=== PATIENT | male | born 2005 | race Two or more races ===

== ENCOUNTER 2025-01-06 19:30 | Emergency (ER) | payer BC, SELFPAY ==
--- NOTE | ~2025-01-06 | CT_ITS ---
CLINICAL HISTORY: LLQ pain, divertic? CT abdomen and pelvis with contrast Comparison: CT - CT ABDOMEN PELVIS W IV CON - 01/06/25 21:25 EDT Findings: No consolidation or effusion. Hepatic steatosis. Normal splenic size. Gallbladder and biliary tree, pancreas, adrenal glands and kidneys demonstrate no acute findings. No radiopaque stones or hydronephrosis. No bowel obstruction, pneumoperitoneum, or pneumatosis. No significant diverticular disease appreciated. Pelvic contents unremarkable. Normal appendix. No fluid collections or adenopathy. No evidence of hernia. Nondilated vasculature. The bones are intact. IMPRESSION: Hepatic steatosis. No acute findings to explain the patient's left lower quadrant pain. Normal appendix. No evidence of hernia. No bowel obstruction or biliary obstruction. No obstructive uropathy. This document has been electronically signed by: Za Hall MD on 01/06/2025 21:52:09
--- NOTE | 2025-01-06 19:31 | ED.ABDPAIN ---
HPI - Abdominal Pain General Chief Complaint: Abdominal Pain Stated Complaint: Lwr abd pain Time Seen by Provider: 01/06/25 20:10 Source: patient Limitations: language barrier History of Present Illness ED Provider: Ciara Montes PA-C HPI narrative: 19-year-old otherwise healthy male presents with the abdominal pain x4 days. Pain over left lower abdomen, with radiation to the groin at times. Unable to describe the nature of his discomfort. Pain worse with movement of torso, or transitioning from lying down to sitting sitting to standing. Denies dysuria, hematuria, history of kidney stones. Denies nausea vomiting diarrhea or constipation. No fevers. Denies testicular pain or swelling, no penile discharge. Patient was seen at urgent care and was advised to come to the emergency room for further assessment. Related Data Previous Rx's ?Medication ?Instructions ?Recorded ketorolac 10 mg tablet 10 mg PO Q6H PRN pain #20 tabs 01/06/25 methocarbamol 750 mg tablet 1,500 mg (2 x 750 mg) PO BEDTIME 01/06/25 PRN pain, moderate #8 tabs Allergies Allergy/AdvReac Type Severity Reaction Status Date / Time No Known Allergies Allergy Verified 01/06/25 19:34 Review of Systems Review of Systems Yes all other systems are reviewed and are negative Constitutional: Denies fatigue and Denies fever(s) Cardiovascular: Denies chest pain and Denies dyspnea Respiratory: Denies cough and Denies dyspnea Gastrointestinal: Reports abdominal pain, Denies constipation, Denies diarrhea, Denies nausea and Denies vomiting Genitourinary: Denies hematuria, Denies dysuria, Denies flank pain, Denies penile discharge, Denies scrotal swelling and Denies testicular pain Musculoskeletal: Reports back pain Endocrine: Denies fatigue [facility] Past Medical History Attestation statement: The following information was validated with the patient. Social History Social History Advance Directives: No Advance Directives Information Provided: No Do you have a plan to hurt others: No Plan Physical Exam ED Vital Signs: Vital Signs - 24 hr 01/06/25 19:33 Temperature 97.3 F Pulse Rate 78 Respiratory Rate 16 Blood Pressure 143/96 H Pulse Oximetry 100 Oxygen Delivery Method Room Air BMI result Body Mass Index 25.8 Const Other: Alert well-appearing, does appear uncomfortable with movement Orientation/consciousness: patient oriented x3 Resp Effort & Inspection: normal respiratory effort Cardio Other: Normal peripheral perfusion GI Other: Abdomen is soft, nondistended, focal left lower abdominal discomfort that is moderate to severe with moderate involuntary guarding Skin Other: Warm dry no rash Neuro General: patient oriented x3, gait normal, no focal motor deficits and CN's II-XI intact bilaterally Psych Other: Cooperative Course Course Course Narrative: This is a Rapid Medical Exam performed in triage by Debra Mathias PA-C. Full HPI, ROS and PE to be performed by primary ED provider. 19 yo M presenting to the ED c/o LLQ abd pain x 4 days, pain is constant. +some dysuria. denies N/V/D, prior abd surgeries PE: abd soft w/+LLQ ttp no rebound or guarding Plan: Labs, UA Medical Decision Making Medical Decision Making [facility] Narrative: 19-year-old otherwise healthy male presents with the abdominal pain x4 days. Pain over left lower abdomen, with radiation to the groin at times. Unable to describe the nature of his discomfort. Pain worse with movement of torso, or transitioning from lying down to sitting sitting to standing. Denies dysuria, hematuria, history of kidney stones. Denies nausea vomiting diarrhea or constipation. No fevers. Denies testicular pain or swelling, no penile discharge. Denies abdominal distention or inability to pass flatus, no prior abdominal surgeries. Patient was seen at urgent care and was advised to come to the emergency room for further assessment to rule out incarcerated hernia. No chronic issues History: Per patient I have considered the following differential diagnoses: Bowel obstruction, diverticulitis, renal colic, torsion Plan: Patient here with focal left lower quadrant pain without any or GI symptoms. This is definitely not an incarcerated hernia. He has no obstructive symptoms, he has no palpable mass on exam. Given his pain is so intense on exam, I will be obtaining a CT scan of the abdomen, he does not need oral contrast. We will give morphine and fluid. Do not think this is torsion, he has no scrotal pain or swelling. Likely not renal colic, he never had flank pain, the pain has been focal to the left lower quadrant and he has no symptoms. Given focal left lower quadrant discomfort this could be diverticulitis, it would be odd given that he has no active GI symptoms. I have independently reviewed the following tests: Labs: No leukocytosis, not anemic, no electrolyte abnormality urine not infected no hematuria, CT abdomen and pelvis:IMPRESSION: Hepatic steatosis. No acute findings to explain the patient's left lower quadrant pain. Normal appendix. No evidence of hernia. No bowel obstruction or biliary obstruction. No obstructive uropathy. 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 Lab Data 01/06/25 19:43 01/06/25 19:43 Labs: Lab Results 01/06/25 01/06/25 Range/Units 19:43 20:31 WBC 7.6 (4.8-10.8) X10*3/uL RBC 5.58 (4.60-5.80) X10*6/uL Hgb 16.3 (14.0-18.0) g/dl Hct 45.9 (42.0-52.0) % MCV 82.3 (80.0-98.0) fL MCH 29.2 (27.0-33.0) pg MCHC 35.5 (31.0-36.0) g/dl RDW 12.7 (11.0-16.0) % Plt Count 250 (160-400) X10*3/uL MPV 9.3 L (9.4-12.4) fL Immature Gran % (Auto) 0.1 (0.0-0.4) % Neut % (Auto) 59.9 (45-73) % Lymph % (Auto) 32.1 (20-40) % [place] % (Auto) 7.1 (2-11) % Eos % (Auto) 0.7 (0-4) % Baso % (Auto) 0.1 (0-2) % Lymph # (Auto) 2.5 (1.2-4.9) X10*3/uL [place] # (Auto) 0.5 (0.1-1.2) X10*3/uL Eos # (Auto) 0.1 (0.0-0.4) X10*3/uL Baso # (Auto) 0.0 (0.0-0.2) X10*3/uL Abs Immat Gran (auto) 0.01 (0.00-0.03) X10*3/uL Absolute Neuts (auto) 4.6 (2.0-8.3) x10*3/uL Absolute Nucleated RBC 0.000 (0.0-0.012) X10*3/uL Nucleated RBC % (auto) 0.0 (0.0-0.2) /100WBC Sodium 140 (135-145) mmol/L Potassium 4.1 (3.3-5.1) mmol/L Chloride 104 (96-108) mmol/L Carbon Dioxide 27 (22-29) mmol/L Anion Gap 13 (12-20) BUN 22 H (9-16) mg/dL Creatinine 1.02 (0.5-1.4) mg/dL Estim Creat Clear Calc 108.0 Estimated GFR > 60 Random Glucose 106 (60-115) mg/dL Calcium 9.7 (8.4-10.2) mg/dL Magnesium 2.1 (1.6-2.6) mg/dL Total Bilirubin 0.8 (0.0-1.0) mg/dL Direct Bilirubin 0.2 (0.0-0.5) mg/dL AST 46 H (5-37) U/L ALT 90 H (0-40) U/L Alkaline Phosphatase 116 (39-117) U/L Total Protein 8.4 H (6.5-8.0) g/dL Albumin 5.0 (3.5-5.0) g/dL Lipase 12 (8-78) U/L Urine Color Yellow Urine Appearance Clear Urine pH 6.5 (5.0-9.0) Ur Specific [place] >= 1.030 H (1.005-1.025) Urine Protein Negative (Neg-Trace) mg/dL Urine Glucose (UA) Negative (Negative) mg/dL Urine Ketones Trace (Negative) mg/dL Urine Blood Negative (Negative) Urine Nitrite Negative (Negative) Ur Leukocyte Esterase Negative (Negative) Medications Administered Discontinued Medications Generic Name Dose Route Start Last Admin Trade Name Freq PRN Reason Stop Dose Admin Sodium Chloride 1,000 mls @ 999 mls/hr 01/06/25 20:45 01/06/25 21:09 Ns IV 01/06/25 21:45 999 mls/hr .Q1H1M VERNON Administration Iohexol 85 ml 01/06/25 21:34 01/06/25 21:35 Iohexol 350 Mg/Ml 100 Ml Infus..Btl IV 01/06/25 21:35 85 ml ONCE ONE Administration Ketorolac Tromethamine 15 mg 01/06/25 22:44 01/06/25 23:09 Ketorolac Tromethamine 15 Mg/Ml Vial IVPUSH 01/06/25 22:45 15 mg ONCE ONE Administration Morphine Sulfate 4 mg 01/06/25 20:45 01/06/25 21:08 Morphine Sulfate 4 Mg/Ml Cartridge IVPUSH 01/06/25 20:46 4 mg ONCE ONE Administration Protocol Ondansetron HCl 4 mg 01/06/25 20:45 01/06/25 21:08 Ondansetron Hcl 4 Mg/2 Ml Vial IVPUSH 01/06/25 20:46 4 mg ONCE ONE Administration Discharge Plan Discharge Clinical Impression: Abdominal wall strain Patient Disposition: Home, Self-Care Instructions: Muscle Strain (ED) Additional Instructions: All of your screening labs were normal including your urinalysis. There were no acute infectious findings on the CT scan. You are being treated for abdominal wall strain. See home care instructions. Use the ketorolac as directed, this is an anti-inflammatory, take it with food. Use the methocarbamol as needed at night before bed, this is a muscle relaxant. To note this medication will cause drowsiness do not drive or operate machinery while taking the methocarbamol. Follow up with your primary care provider as needed. Prescriptions: New ketorolac 10 mg tablet 10 mg PO Q6H PRN (Reason: pain) Qty: 20 0RF Rx Instructions: maximum total duration of 5 days from all oral, intranasal, or parenteral formulations. The patient received an IV dose of Toradol here in the emergency department methocarbamol 750 mg tablet 1,500 mg PO BEDTIME PRN (Reason: pain, moderate) Qty: 8 0RF Stand Alone Forms: Work/School Release Print Language: Hungarian
[2025-01-06 19:33] VITALS: BP 143/96; PULSE 78; RESP 16; TEMP 36.3; O2SAT 100; BMI 25.8
[2025-01-06 19:48] LABS: Basophils Percent Auto 0.1 % (0-2); Eosinophils Absolute Auto 0.1 X10*3/uL (0.0-0.4); Eosinophils Percent Auto 0.7 % (0-4); Hematocrit 45.9 % (42.0-52.0); Hemoglobin 16.3 g/dl (14.0-18.0); Imm Gran Abs Auto 0.01 X10*3/uL (0.00-0.03); Imm Gran Pct Auto 0.1 % (0.0-0.4); Lymphocytes Absolute Auto 2.5 X10*3/uL (1.2-4.9); Lymphocytes Percent Auto 32.1 % (20-40); MANUAL DIFF FLAG NO; Mean Corpuscular HGB Conc 35.5 g/dl (31.0-36.0); Mean Corpuscular Hemoglobin 29.2 pg (27.0-33.0); Mean Corpuscular Volume 82.3 fL (80.0-98.0); Mean Platelet Volume 9.3 fL (9.4-12.4); Monocytes Absolute Auto 0.5 X10*3/uL (0.1-1.2); Monocytes Percent Auto 7.1 % (2-11); Neutrophils Absolute Auto 4.6 x10*3/uL (2.0-8.3); Neutrophils Percent Auto 59.9 % (45-73); Platelet Count 250 X10*3/uL (160-400); Red Blood Count 5.58 X10*6/uL (4.60-5.80); Red Cell Distribution Width 12.7 % (11.0-16.0); White Blood Count 7.6 X10*3/uL (4.8-10.8)
[2025-01-06 20:03] LABS: Alanine Aminotransferase 90 U/L (0-40); Alkaline Phosphatase 116 U/L (39-117); Anion Gap 13 (12-20); Aspartate Amino Transferase 46 U/L (5-37); Bilirubin Direct 0.2 mg/dL (0.0-0.5); Bilirubin Total 0.8 mg/dL (0.0-1.0); Blood Urea Nitrogen 22 mg/dL (9-16); Calcium 9.7 mg/dL (8.4-10.2); Carbon Dioxide 27 mmol/L (22-29); Chloride 104 mmol/L (96-108); Estimated Glomerular Filt Rate > 60; Glucose Random 106 mg/dL (60-115); Lipase 12 U/L (8-78); Magnesium 2.1 mg/dL (1.6-2.6); Potassium 4.1 mmol/L (3.3-5.1); Sodium 140 mmol/L (135-145); Total Protein 8.4 g/dL (6.5-8.0)
--- OUTSIDE RECORDS SUMMARY | 2025-01-06 20:14 | XMS_ITS | Clinical Summary ---
Author Organization [employer] Address [address] [place] [address] Care Team Providers Care Telephone Station Installer Name Role Phone Tacos Carter MD Primary Care Prov ider Allergies No known active allergies Medications No known medications Active Problems Problem Noted Date Diagnosed Date Left lower quadrant abdominal mass 01/05/2025 Assessment & Plan (01/05/2025 2:40 PM EDT): Acute onset LLQ pain after heavy lifting 2 days ago. Firm mass in LLQ on exam. Severe discomfort with laying down on exam table. Reports pain with eating, urinating and movement. Denies any testicular or groin pain. Suspect likely incarcerated hernia. Discussed sending pt to the ED for further work-up and STAT CT. Denied ambulance transport. Vitals are stable. Pt to go to ER now. Encounter for medical examination to establish c are 12/15/2024 Assessment & Plan (12/15/2024 10:05 AM EDT): Last pcp visit >1 year Hospitalization:- ER: - Pmhx:- Pshx:- All:- Meds: - Encounters Date Type Department Care Team Description 01/06/[address] [facility] [address] [place] [id number] Ana Leggett MD 01/06/[address] [facility] [address] [place] [phone] Ana Leggett MD 01/05/2025 2:20 PM EDT Office Visit [facility] [address] [place] [address] Ana Leggett MD Left lower quadrant abdominal mass (Primary Dx) 01/05/2025 Travel 12/15/2024 9:45 AM EDT Telemedicine [facility] [address] [place] [address] Tacos Carter MD Encounter for medical examination to establish care (Primary Dx) 12/15/2024 Travel 11/12/2024 Telephone [facility] [address] [place] [address] Tacos Carter MD New Patient from Last 3 Months Family History Medical History Relation Name Comments Hypertension Father Heart attack Mother Hypertension Mother Cancer Neg Hx Relation Name Status Comments Father Mother Social History Tobacco Use Types Packs/Day Years Used Date Smoking Tobacco: Never Smokeless Tobacco: Never Tobacco Cessation:Counseling Given: Not Answered Alcohol Use Standard Drinks/Week Comments Never 0 (1 standard drink = 0.6 oz pur e alcohol) Depression Answer Date Recorded Patient Health Questionnaire-9 Score 0 12/15/2024 Patient Health Questionnaire-9 Score 0 12/15/2024 Last PHQ-9: Questionnaire Data Not on file 0 12/15/2024 Housing Stability Answer Date Recorded What is your housing situation today? I have [place] 12/15/[address] you li ve. Do you have problems with any of the following? None of the above 12/15/2024 Food Insecurity Answer Date Recorded Within the past 12 months, y ou worried that your food would run out before you got money to buy more: Never True 12/15/2024 Within the past 12 months,th e food you bought just didn't last and you didn't have enough money to get more: Never True Transportation Answer Date Recorded In the past 12 months, has l ack of transportation kept you from medical appts, meetings, work or from getting things needed for daily living? No 12/15/2024 Utilities Answer Date Recorded In the past 12 months, has t he electric, gas, oil or water company threatened to shut off services in your home? No 12/15/2024 Depression Answer Date Recorded Patient Health Questionnaire-2 Score 0 12/15/2024 Internet Access Answer Date Recorded Internet Access Q1 Yes 12/15/2024 Internet Access Q2 Not on file 12/15/2024 Sex and Gender Information Value Date Recorded Sex Assigned at Male 12/11/2024 11:15 AM EDT Legal Sex Male 10:44 AM EDT Gender Identity Male 12/11/2024 11:15 AM EDT Sexual Orientation Straight 12/11/2024 11 :15 AM EDT Last Filed Vital Signs Vital Sign Reading Time Taken Comments Blood Pressure 132/84 01/05/2025 1:58 PM EDT Pulse 70 01/05/2025 1:58 PM EDT Temperature 37.6 ??C (99.7 ??F) 01/05/2025 1:58 PM ED T Respiratory Rate 18 01/05/2025 1:58 PM EDT Oxygen Saturation 98% 01/05/2025 1:58 PM EDT Inhaled Oxygen Concentration - - Weight 76.7 kg (169 lb) 01/05/2025 1:58 PM EDT Height 171.5 cm (5' 7.5 ) 01/05/2025 1:58 PM EDT Body Mass Index 26.08 01/05/2025 1:58 PM EDT Plan of Treatment Health Maintenance Due Date Last Done Comments Chlamydia and Gonorrhea Screening 2004 HIV Screening 2004 Alcohol/Substance Use Screening 2016 Family Planning (PISQ) 02/21/2019 Meningococcal B Vaccine (1 of 2 - Standard) 2020 Hepatitis C Screening 02/21/2022 COVID-19 Vaccine ( season) 2024 07/01/2021, 01/07/2021 Influenza Vaccine (#1) 2024 2, 08/29/2021, 08/02/2020, Additional history exists Depression Screening 12/15/2025 12/15/2024, 12/16/19 SDOH Screening 12/15/2025 12/15/2024 Disability Screening 01/05/2026 01/05/2025 Tobacco Screening 01/05/2026 01/05/2025 DTaP/Tdap/Td Vaccines (6 - Td or Tdap) 07/31/2028 07/31/2018, 11/16/2010, 12/04/2005, Additional history exists Zoster Vaccines (1 of 2) 02/21/2054 RSV Patients and Patients Aged 60 years or older (1 - 1-dose 75+ series) 02/21/2079 IPV Vaccines Completed 11/16/2010, 11/17, 10/04/2005, Additional history exists HPV Vaccines Completed 01/13/2019, 08/13/2018 Hepatitis A Vaccines Completed 05/29/2019, 08/13/20 18 Hepatitis B Vaccines Completed 05/29/2019, 01/13/2019, 07/31/2018 Meningococcal Vaccine Completed 08/02/2020 , 08/02/2020, 07/31/2018 HIB Vaccines Aged Out No longer eligi ble based on patient's age to complete this topic Pneumococcal Vaccine: Pediatrics (0 to 5 Years) and At-Risk Patients (6 to 49) Years) Aged Out No longer eligible based on patient's age to complete this topic RSV under 20 months Aged Out No longe r eligible based on patient's age to complete this topic Rotavirus Vaccines Aged Out No longer eligible based on patient's age to complete this topic Insurance PPO Care Teams Telephone Station Installer Relationship Specialty Start Date End Date Tacos Carter MD [address] [place] [phone] PCP - General Internal Medicine 12/15/24
--- OUTSIDE RECORDS SUMMARY | 2025-01-06 20:14 | XMS_ITS | Encounter Summary ---
Author Organization [employer] Address [address] [place] [address] Care Team Providers Care Communications Tower Climber Name Role Phone Tacos Carter MD Primary Care Prov ider Encounter Details Date Type Department Care Team ([facility] st Contact Info) Description 01/05/2025 2:20 PM EDT Office Visit [facility] [address] [place] [address] [phone] Ana Leggett MD [address] [place] [address] Left lower quadrant abdominal mass (Primary Dx) Social History Tobacco Use Types Packs/Day Years Used Date Smoking Tobacco: Never Smokeless Tobacco: Never Alcohol Use Standard Drinks/Week Comments Never 0 (1 standard drink = 0.6 oz pur e alcohol) Depression Answer Date Recorded Patient Health Questionnaire-9 Score 0 12/15/2024 Patient Health Questionnaire-9 Score 0 12/15/2024 Last PHQ-9: Questionnaire Data Not on file 0 12/15/2024 Housing Stability Answer Date Recorded What is your housing situation today? I have [place] 12/15/[address] you li [...] Orientation Straight 12/11/2024 11 :15 AM EDT documented as of this encounter Last Filed Vital Signs Vital Sign Reading [...] Mass Index 26.08 01/05/2025 1:58 PM EDT documented in this encounter Progress Notes * Ana Leggett MD - 01/05/2025 2:20 PM EDT Subjective Patient ID: Jonathan Kay is a 19 y.o. male who presents to walk in clinic for LLQ pain. Pt reports 2 days ago he lifting something heavy and had acute left low abdominal pain. Since then has had left abdominal pain with worsened pain and now hurts when when urinating. He is nauseous from the pain. Described as sharp, non radiating, 8-9/10. Denies any change sin BMs. Denies any groin or testicular pain. He has significant pain with any movement of the torso. Review of Systems Constitutional: Negative for fever and unexpected weight change. Respiratory: Negative for shortness of breath. Cardiovascular: Negative for chest pain. Gastrointestinal: Positive for abdominal pain. Genitourinary: Negative for difficulty urinating. Objective Visit Vitals BP 132/84 (BP Location: Left arm, Patient Position: Sitting, BP Cuff Size: Adult) Pulse 70 Temp 99.7 ??F (37.6 ??C) (Temporal) Resp 18 Body mass index is 26.08 kg/m??. Physical Exam Constitutional: General: He is in acute distress (mild distress due to pain). Appearance: Normal appearance. Cardiovascular: Rate and Rhythm: Normal rate and regular rhythm. Heart sounds: Normal heart sounds. Pulmonary: Effort: Pulmonary effort is normal. Breath sounds: Normal breath sounds. Abdominal: General: Abdomen is flat. Palpations: Abdomen is soft. There is mass (small, 2 cm mass in LLQ). Tenderness: There is no abdominal tenderness. Comments: Severe discomfort with laying down or getting up. Unable to squat from standing position.Unable to jump Genitourinary: Testes: Right: Mass or tenderness not present. Left: Mass or tenderness not present. Musculoskeletal: Cervical back: Normal range of motion and neck supple. Lymphadenopathy: Cervical: No cervical adenopathy. Skin: General: Skin is warm and dry. Neurological: Mental Status: Mental status is at baseline. Psychiatric: Behavior: Behavior normal. Problem List Items Addressed This Visit Left lower quadrant abdominal mass - Primary Acute onset LLQ pain after heavy lifting 2 days ago. Firm mass in LLQ on exam. Severe discomfort with laying down on exam table. Reports pain with eating, urinating and movement. Denies any testicular or groin pain. Suspect likely incarcerated hernia. Discussed sending pt to the ED for further work-up and STAT CT.Denied ambulance transport. Vitals are stable. Pt to go to ER now. I, Ada Robbins, am serving as a scribe to document services personally performed by Dr. Cason, based on the patient's response to questions by provider and providers statements to me. * Zee Laguna RN - 01/05/2025 2:20 PM EDT TC placed to [facility] ED at [phone] per verbal order per Dr[address] Leggett. RN gave verbal report to Ofelia, incarcerated hernia left lower abd, vitals signs stable and pt going by private car. Ofelia verbalized understanding. [facility] ED to F/U as needed. documented in this encounter Miscellaneous Notes * Assessment & Plan Note - Ada Robbins - 01/05/2025 2:36 PM EDTAssociated Problem(s): Left lower quadrant abdominal mass Acute onset LLQ pain after heavy lifting 2 days ago. Firm mass in LLQ on exam. Severe discomfort with laying down on exam table. Reports pain with eating, urinating and movement. Denies any testicular or groin pain. Suspect likely incarcerated hernia. Discussed sending pt to the ED for further work-up and STAT CT.Denied ambulance transport. Vitals are stable. Pt to go to ER now. documented in this encounter Plan of Treatment Not on file documented as of this encounter Visit Diagnoses Diagnosis Left lower quadrant abdominal mass- Primary Abdominal or pelvic swelling, mass, or lump, left lower quadrant documented in this encounter Additional Health Concerns Assessment Noted Time PHQ-9 Depression Total Score: 0 12/16/19 9:21 AM EDT documented as of this encounter Care Teams Communications Tower Climber Relationship Specialty Start Date End Date Tacos Carter MD [address] [place] [phone] PCP - General Internal Medicine 12/15/24 documented as of this encounter
--- OUTSIDE RECORDS SUMMARY | 2025-01-06 20:14 | XMS_ITS | Encounter Summary ---
Author Organization [employer] Address [address] [place] [address] Care Team Providers Care Manager Emergency Name Role Phone Tacos Carter MD Primary Care Prov ider Encounter Details Date Type Department Care Team ([facility] st Contact Info) Description 01/06/2025 Telephone [facility] [address] [place], [place] [phone] Ana Leggett MD [address] [place] [address] Social History Tobacco Use Types Packs/Day Years [...] AM EDT documented as of this encounter Miscellaneous Notes * Telephone Encounter - Anaid Goodman RN - 01/06/2025 4:10 PM EDT TC to pt. animal trainer supervisor used. Pt states that he went to [facility] emergency room yesterday andwas discharged because there was nothing they could do and they needed an order for an Xray pt states that he is still in a lot of pain. RN cannot find discharge paperwork from [facility], [facility], or [facility]. RN educated pt that he needs to be evaluated by an emergency room physician. Pt verbalizes und erstanding and states that he is going to [place] emergency room. RN called [facility] ED and gave report to Aleshia . Note routed to [facility] provider documented in this encounter Plan of Treatment Not on file documented as of this encounter Visit Diagnoses Not on filedocumented in this encounter Additional Health Concerns Assessment Noted Time PHQ-9 Depression Total Score: 0 12/16/19 9:21 AM EDT documented as of this encounter Care Teams Manager Emergency Relationship Specialty Start Date End Date Tacos Carter MD [address] [place] [address] PCP - General Internal Medicine 12/15/24 documented as of this encounter
--- OUTSIDE RECORDS SUMMARY | 2025-01-06 20:14 | XMS_ITS | Encounter Summary ---
Author Organization [employer] Address [address] [place] [address] 7 [place] [address] Care Team Providers Care Cloth Booker Name Role Phone Tacos Carter MD Primary Care Prov ider Reason for Visit * Reason Onset Date Comments New Patient 11/12/2024 Encounter Details Date Type Department Care Team ([facility] st Contact Info) Description 11/12/2024 Telephone [facility] MED & PEDS [address] [place] [phone] Tacos Carter MD [address] [place] [address] New Patient Social History Tobacco Use Types Packs/Day Years Used Date Smoking Tobacco: Never Assessed Sex and Gender Information Value Date Recorded Sex Assigned at Male 12/11/2024 11:15 AM EDT Legal Sex Male 10:44 AM EDT Gender Identity Male 12/11/2024 11:15 AM EDT Sexual Orientation Straight 12/11/2024 11 :15 AM EDT documented as of this encounter Miscellaneous Notes * Telephone Encounter - Rajwinder Louis - 11/12/2024 11:08 AM EDT TC placed to patient for scheduling of new patient visit. Agreed to 12/15/24 with Jl Medical Conditions: Last seen 1 year ago at [facility] App[employer] reminder and release form sent via mail . documented in this encounter Plan of Treatment Not on file documented as of this encounter Visit Diagnoses Not on filedocumented in this encounter Care Teams Cloth Booker Relationship Specialty Start Date End Date Tacos Carter MD [address] [place] [phone] PCP - General Internal Medicine 12/15/24 documented as of this encounter
--- OUTSIDE RECORDS SUMMARY | 2025-01-06 20:14 | XMS_ITS | Encounter Summary ---
Author Organization [employer] Address [address] [facility]t [place] [address] Care Team Providers Care Finished Hardware Erector Name Role Phone Tacos Carter MD Primary Care Prov ider Encounter Details Date Type Department Care Team ([facility] st Contact Info) Description 01/06/2025 Telephone [facility] [address], [place] [phone] Ana Leggett MD [address] [place] [address] Social History Tobacco Use Types Packs/Day Years [...] encounter Miscellaneous Notes * Telephone Encounter - Zee Laguna RN - 01/06/2025 2:58 PM EDT Please status check pt 01/06/25. TY documented in this encounter Plan of Treatment Not on file documented as of this encounter Visit Diagnoses Not on filedocumented in this encounter Additional Health Concerns Assessment Noted Time PHQ-9 Depression Total Score: 0 12/16/19 9:21 AM EDT documented as of this encounter Care Teams Finished Hardware Erector Relationship Specialty Start Date End Date Tacos Carter MD [address] [place] [phone] PCP - General Internal Medicine 12/15/24 documented as of this encounter
--- OUTSIDE RECORDS SUMMARY | 2025-01-06 20:14 | XMS_ITS | Clinical Summary ---
Author Organization [facility] Address [address] [place] [address] Care Team Providers Care Asic Design Engineer Name Role Phone Unavailable Primary Care Provider Unavailabl e Source Comments PLEASE NOTE, if this patient is a minor, it may be UNLAWFUL to discuss sensitive information that is contained in these records (such as FAMILY PLANNING, MENTAL HEALTH or SUBSTANCE ABUSE) with the minor patient's parent or other person without the patient's specific authorization.[facility] Allergies No known active allergies Medications No known medications Active Problems No known active problems Social History Tobacco Use Types Packs/Day Years Used Date Smoking Tobacco: Never Smokeless Tobacco: Never Tobacco Cessation:Counseling Given: Not Answered Social Connections Answer Date Recorded Connectedness 0 05/01/2024 Financial Resource Strain Answer Date R ecorded Financial Resource Strain 0 2021 Stress Answer Date Recorded Stress 0 06/05/2022 Physical Activity Answer Date Recorded Physical Activity 0 06/05/2022 Food Insecurity Answer Date Recorded Food 0 05/14/2024 Transportation Needs Answer Date Record ed Transportation 0 06/05/2022 Housing Stability Answer Date Recorded Housing 0 06/05/2022 Safety and Environment Answer Date Andrea rded Safety 0 06/05/2022 Utilities Answer Date Recorded Utilities 0 06/05/2022 Employment Answer Date Recorded Stress 0 05/01/2024 Sex and Gender Information Value Date Recorded Sex Assigned at Not on file Legal Sex Male 6:36 AM PDT Gender Identity Not on file Sexual Orientation Not on file Last Filed Vital Signs Vital Sign Reading Time Taken Comments Blood Pressure 129/86 12/14/2022 10:02 AM EDT Pulse 69 12/14/2022 10:02 AM EDT Temperature - - Respiratory Rate - - Oxygen Saturation - - Inhaled Oxygen Concentration - - Weight - - Height - - Body Mass Index - - Plan of Treatment Health Maintenance Due Date Last Done Comments Anxiety Screening 2004 Hepatitis C Screening 2004 Tobacco Screening 2004 HIV Screening 02/21/2019 Imm-Hepatitis A (2 of 2 - 2- dose series) 11/28/2019 05/29/2019 Dental Examination 06/17/2023 12/14/2022, 06/15/2022 Dental Prophy 06/17/2023 12/14/2022, 06/15/2022 Hypertension Screening (#1) 12/14/2023 Dental BW 12/17/2023 12/14/2022, 06/15/2022 Dental Perio Charting 12/17/2023 12/14/2022 [id number] ( season) 2024 021 Imm-Influenza (#1) 2024 08/29/2021, 1 10/03/2019, 05/29/2019, Additional history exists Alcohol and Drug Screen 08/19/2024 Depression Annual Screen 08/19/2024 Dental FMX/Pano 06/17/2027 06/15/2022 Imm-DTaP/Tdap/Td (6 - Td or Tdap) 07/31/2028 07/31/2018, 11/16/2010, 12/04/2005, Additional history exists Imm-MMR Completed 07/31/2018, 09/06/2005 Imm-HPV Completed 01/13/2019, 08/13/2018 Imm-Varicella Completed 01/13/2019, 07/31/2018 Imm-Hepatitis B Completed 05/29/2019, 12/18, 07/31/2018 Goals Goal Patient Goal Type Associated Problems Recent Progress Patient-Stated? Author Lau[place] with fluoride toothpaste atleast 2x per day Dental No Johanna Shah Floss every day Dental No Johanna Shah Limit sweets per day Dental No Pablo Johanna Procedures Procedure Name Priority Date/Time Associated Diagnosis Comments COMP PERIODONTAL EVALUATION - NEW/EST PATIENT Routine 12/14/2022 9:40 AM EDT Caries BITEWINGS - FOUR RADIOGRAPHIC IMAGES Routine 12/14/2022 9:40 AM EDT Caries of enamel (incipient) Caries PROPHYLAXIS - ADULT Routine 12/14/2022 9 :40 AM EDT Caries of enamel (incipient) Caries PERIODIC ORAL EVALUATION ESTABLISHED PATIENT Routine 12/14/2022 9:40 AM EDT Caries of enamel (incipient) Caries PANORAMIC RADIOGRAPHIC IMAGE Routine 06/15/2022 9:40 AM EDT Encounter for dental examination from Last 3 Months or Most Recently Relevant to Health Maintenance Insurance [place] MEDICAID [facility]
--- OUTSIDE RECORDS SUMMARY | 2025-01-06 20:14 | XMS_ITS | Encounter Summary ---
Author Organization [employer] Address [address] [facility] 7t [place] [address] Care Team Providers Care Gas Welding Machine Operator Name Role Phone Tacos Carter MD Primary Care Prov ider Encounter Details Date Type Department Care Team (Latest Contact Info) Description 01/05/2025 Travel Social History Tobacco Use Types Packs/Day Years [...] is your housing situation today? [place] have [place] 12/15/[address] you [...] AM EDT documented as of this encounter Plan of Treatment Not on file documented as of this encounter Visit Diagnoses Not on filedocumented in this encounter Additional Health Concerns Assessment Noted Time PHQ-9 Depression Total Score: 0 12/16/19 9:21 AM EDT documented as of this encounter Care Teams Gas Welding Machine Operator Relationship Specialty Start Date End Date Tacos Carter MD [address] [place] [phone] PCP - General Internal Medicine 12/15/24 documented as of this encounter
[2025-01-06 20:42] LABS: Appearance Urine Clear; Color Urine Yellow; Glucose Urine UA Negative (Negative); Leukocyte Esterase Urine Negative (Negative); Nitrite Urine Negative (Negative); PH 6.5 (5.0-9.0); Specific Gravity - Urine >= 1.030 (1.005-1.025); Urine Blood Negative (Negative); Urine Ketones Trace mg/dL (Negative); Urine Protein Negative (Neg-Trace)
[2025-01-06] MEDS: Morphine Sulfate 4 MG/ML CARTRIDGE IVPUSH (21:08)
[2025-01-06] MEDS: ondansetron HCL 4 MG/2 ML VIAL IVPUSH (21:08)
[2025-01-06] MEDS: 0.9 % Sodium Chloride 1,000 ML 999 ML IV (21:09)
[2025-01-06] MEDS: iohexoL 350 MG/ML 100 ML INFUS..BTL 85 ML IV (21:35)
[2025-01-06] MEDS: Ketorolac Tromethamine 15 MG/ML VIAL IVPUSH (23:09)
[2025-01-07 00:11] VITALS: BP 123/83; PULSE 70; RESP 18; TEMP 36.7; O2SAT 98
== END 2025-01-07 00:15 | disposition home or self-care (01) ==
PROVIDERS: Physician Assistant; Emergency Provider Emergency Medicine; PCP Family Medicine
DX: R10.32 Left lower quadrant pain (principal); R30.0 Dysuria; R11.2 Nausea with vomiting, unspecified; Z79.899 Other long term (current) drug therapy
CPT/HCPCS: 36415; 74177; 80048; 80076; 81003; 83690; 83735; 85025; 96361; 96374; 96375; 99284; 99285; J1885; J2270; J2405; Q9967

== ENCOUNTER → 2025-01-06 20:44 | Outpatient (BNV) | payer BC, SELFPAY | PROVIDERS: Emergency Provider Emergency Medicine; PCP Family Medicine; Visit Provider Radiology Diagnostic Radiology | DX: K76.0 Fatty (change of) liver, not elsewhere classified (principal) | CPT/HCPCS: 74177 ==

== ENCOUNTER 2025-07-08 13:24 | Outpatient (REF) | payer BC, SELFPAY ==
--- OUTSIDE RECORDS SUMMARY | 2025-07-08 13:00 | XMS_ITS | Encounter Summary ---
Author Organization [employer] Address [address] [facility] 7t [place] [address] Care Team Providers Care Acquisition Editor Name Role Phone Tacos Carter MD Primary Care Prov ider Reason for Visit * Reason Comments Annual Exam PE Encounter Details Date Type Department Care Team ([facility] st Contact Info) Description 07/08/2025 1:00 PM EST Office Visit [facility] MED & PEDS [address] [place], [place] [phone] Tacos Carter MD [address] [place] [address] STD exposure (Primary Dx); Dietary counseling; Exercise counseling; Generalized abdominal pain Social History Tobacco Use Types Packs/Day Years [...] your housing situation today? I have belle vivian 12/15/[address] you li [...] Sign Reading Time Taken Comments Blood Pressure 134/80 07/08/2025 12:54 PM EST Pulse 72 07/08/2025 12:54 PM EST Temperature 36.8 C (98.2 F) 07/08/2025 12:54 PM EST Respiratory Rate 18 07/08/2025 12:54 PM EST Oxygen Saturation 98% 07/08/2025 12:54 PM EST Inhaled Oxygen Concentration - - Weight 76.7 kg (169 lb) 07/08/2025 12:54 PM EST Height 167.6 cm (5' 6 ) 07/08/2025 12:54 PM EST Body Mass Index 27.28 07/08/2025 12:54 PM EST documented in this encounter Progress Notes * Tacos Kelley MD - 07/08/2025 1:00 PM EST Subjective Patient ID: Jonathan Kay is a 20 y.o. male who presents for Annual Exam (PE). Abdominal Pain This is a recurrent problem. The pain is located in the generalized abdominal region. Pertinent negatives include no anxiety, constipation, diarrhea, melena or vomiting. Review of Systems Gastrointestinal: Positive for abdominal pain. Negative for constipation, diarrhea, melena and vomiting. Psychiatric/Behavioral: The patient is not nervous/anxious. Objective Physical Exam Constitutional: Appearance: Normal appearance. Cardiovascular: Rate and Rhythm: Normal rate. Heart sounds: No murmur heard. Pulmonary: Effort: Pulmonary effort is normal. No respiratory distress. Breath sounds: No stridor. No wheezing or rhonchi. Abdominal: General: Abdomen is flat. Bowel sounds are normal. There is no distension. Tenderness: There is no abdominal tenderness. There is no guarding or rebound. Hernia: No hernia is present. Neurological: General: No focal deficit present. Mental Status: He is alert and oriented to person, place, and time. Psychiatric: Mood and Affect: Mood normal. Behavior: Behavior normal. Assessment/Plan Problem List Items Addressed This Visit STD exposure - Primary Test ordered previously, will follow up results, no warning signs Relevant Medications doxycycline (Vibramycin) 100 MG capsule ibuprofen 600 MG tablet Generalized abdominal pain Seen at er, symptoms improved since starting bentyl, pending gastroenterology evaluation, fodmap diet discussed Other Visit Diagnoses Dietary counseling Exercise counseling documented in this encounter Miscellaneous Notes * Assessment & Plan Note - Tacos Kelley MD - 07/08/2025 1:23 PM ESTAssociated Problem(s): Generalized abdominal pain Seen at er, symptoms improved since starting bentyl, pending gastroenterology evaluation, fodmap diet discussed * Assessment & Plan Note - Tacos Kelley MD - 07/08/2025 1:22 PM ESTAssociated Problem(s): STD exposure Test ordered previously, will follow up results, no warning signs documented in this encounter Plan of Treatment Not on file documented as of this encounter Visit Diagnoses Diagnosis STD exposure- Primary Dietary counseling Dietary surveillance and counseling Exercise counseling Generalized abdominal pain Abdominal pain, generalized documented in this encounter Additional Health Concerns Assessment Noted Time PHQ-9 Depression Total Score: 0 12/16/19 25 9:21 AM EDT documented as of this encounter Care Teams Acquisition Editor Relationship Specialty Start Date End Date ParikhTacos Oneil MD [address] [place] [phone] PCP - General Internal Medicine 12/15/24 documented as of this encounter
[2025-07-08 14:14] LABS: Appearance Urine Clear; Glucose Urine UA Negative (Negative); PH 6.5 (5.0-9.0); Specific Gravity - Urine >= 1.030 (1.005-1.025)
[2025-07-08 14:22] LABS: INTERNATIONAL NORM RATIO 1.0 (0.9-1.1); Prothrombin Time 12.7 SEC (11.2-13.5)
[2025-07-08 14:51] LABS: Iron 99 mcg/dL (45-160); Percent Iron Saturation 31 % (15-50); Total Iron Binding Capacity 322 mcg/dL (228-428); Unsaturated Iron Binding 223 ug/dL
[2025-07-08 15:02] LABS: Ferritin 125 ng/mL (20-250)
--- OUTSIDE RECORDS SUMMARY | 2025-07-08 18:53 | XMS_ITS | Encounter Summary ---
Author Organization [employer] Address [address] [facility] 7t [place] [address] Care Team Providers Care Sulfonation Equipment Operator Name Role Phone Tacos Carter MD Primary Care Prov ider Encounter Details Date Type Department Care Team (Latest Contact Info) Description 07/08/2025 Travel Social History Tobacco Use Types Packs/Day [...] documented as of this encounter Care Teams Sulfonation Equipment Operator Relationship Specialty Start Date End Date Tacos Carter MD [address] [place] [phone] PCP - General Internal Medicine 12/15/24 documented as of this encounter
--- OUTSIDE RECORDS SUMMARY | 2025-07-08 18:53 | XMS_ITS | Clinical Summary ---
Author Organization [employer] Address [address] [facility] 7t [place] [address] Care Team Providers Care Laborer Starch Factory Name Role Phone Tacos Carter MD Primary Care Prov ider Allergies No known active allergies Medications dicyclomine (Bentyl) 10 MG capsuleIndicati ons:Left lower quadrant abdominal pain Take 1 capsule (10 mg) by mouth 4 times daily. 120 capsule 11 05/19/2025 Active doxycycline (Vibramycin) 100 MG capsule TAKE ONE CAPSULE BY MOUTH TWICE DAILY WITH FULL GLASS OF WATER. START AT 7PM ON 05/10/25 05/10/2025 Active ibuprofen 600 MG tablet Take 1 tablet by mouth every 6 (six) hours if needed for mild pain. 05/10/2025 Active Active Problems Problem Noted Date Diagnosed Date Healthy adolescent on routine physical examinati on 07/08/2025 Pre-syncope 07/08/2025 STD exposure 07/08/2025 Assessment & Plan (07/08/2025 1:22 PM EST): Test ordered previously, will follow up results, no warning signs Generalized abdominal pain 07/08/2025 Assessment & Plan (07/08/2025 1:23 PM EST): Seen at er, symptoms improved since starting bentyl, pending gastroenterology evaluation, fodmap diet discussed Left lower quadrant abdominal mass 01/05/2025 Assessment [...] Encounters Date Type Department Care Team Description 07/08/2025 1:00 PM EST Office Visit [facility] MED & PEDS [address] [place] [phone] Tacos Carter MD STD exposure (Primary Dx); Dietary counseling; Exercise counseling; Generalized abdominal pain 07/08/2025 Travel 07/01/2025 Patient Outreach [facility] [address] [place] [phone] Tacos Carter MD Pre-visit Planning ([facility] unable to reach [facility] ) 05/19/2025 2:20 PM EDT Office Visit [facility] MED [facility] PEDS [address] [place] [phone] Venancio Mcconnell MD Transaminitis (Primary Dx); Left lower quadrant abdominal pain; Steatosis of liver; Screen for STD (sexually transmitted disease) 05/19/2025 Travel 05/18/2025 Telephone [facility] MEDICINE [address] [place] [phone] Tacos Carter MD Nurse Triage 05/03/2025 Telephone [facility] MEDICINE [address] [place] [phone] Tacos Carter MD Nurse Triage 05/03/[address] [address] Tacos Carter MD from Last 3 Months Immunizations Immunization Administration Dates Next Due BCG 2004 DTaP 11/16/2010, 6,10/04/2005,09/01,07/04/2005 HPV, Quadrivalent 01/13/2019,08/13/2018 Hep A, Unspecified 08/13/2018 Hep A, ped/adol, 2 dose 05/29/2019 Hep B, Adolescent or Pediatric 05/29/2019,2018,07/31/2018 IPV 11/16/2010, 6,10/04/2005,09/01,07/04/2005 Influenza injectable quadriv alent preservative free 08/29/2021,08/02/2020 Influenza, IIV3, injectable 08/29/2021,1 10/03/2019,05/29/2019,08/13 Influenza, seasonal, injecta ble, preservative free 05/29/2019 MMR 07/31/2018,09/06/2005 Meningococcal ACWY, unspecified 08/02/2020,07/31 Meningococcal MCV4P ACYW-135 08/02/2020 Tdap 07/31/2018 Varicella 01/13/2019,07/31/2018 Family History Medical History Relation Name Comments [...] Mass Index 27.28 07/08/2025 12:54 PM EST Plan of Treatment Health Maintenance Due Date Last Done Comments Chlamydia and Gonorrhea Screening 2004 HIV Screening 2004 Family Planning (PISQ) 02/21/2019 Meningococcal B Vaccine (1 of 2 - Standard) 2020 Hepatitis C Screening 02/21/2022 COVID-19 Vaccine (3 - season) 2025 07/01/2021, 01/07/2021 Influenza Vaccine (#1) 2025 2, 08/29/2021, 08/02/2020, Additional history exists Depression Screening 12/15/2025 12/15/2024, 12/16/19 25 SDOH Screening 12/15/2025 12/15/2024 Disability Screening 01/05/2026 01/05/2025 Tobacco Screening 05/19/2026 05/19/2025 Alcohol/Substance Use Screening 07/08/2026 07/08/2025 DTaP/Tdap/Td Vaccines (6 - Td or Tdap) [...] Years) and At-Risk Patients (6 to 49) Years Aged Out No longer eligible based on patient's age to complete this topic RSV under 20 months Aged Out No longe r eligible based on patient's age to complete this topic Rotavirus Vaccines Aged Out No longer eligible based on patient's age to complete this topic Procedures Procedure Name Priority Date/Time Associated Diagnosis Comments URINALYSIS WITH REFLEX MICROSCOPIC Routine 07/08/2025 1:33 PM EST Screen for STD (sexually transmitted disease) C-REACTIVE PROTEIN Routine 07/08/2025 1: 27 PM EST Transaminitis IRON AND TOTAL IRON BINDING CAPACITY Routine 07/08/2025 1:27 PM EST Transaminitis Left lower quadrant abdominal pain FERRITIN Routine 07/08/2025 1:27 PM EST Transaminitis Left lower quadrant abdominal pain PROTHROMBIN TIME-INR Routine 07/08/2025 1:27 PM EST Transaminitis Left lower quadrant abdominal pain from Last 3 Months Results * (ABNORMAL) Urinalysis w/reflex microscopic (07/08/2025 1:33 PM EST) Color Urine Yellow [facility] Appearance Urine Clear [facility] PH 6.5 5.0 - 9.0 [facility] Glucose Urine UA Negative Negative mg/dL [facility] Urine Blood Negative Negative [facility] Specific [place] - Urine >=1.030(H) 1.005 - 1.025 [facility] Urine Protein Negative Neg-Trace mg/dL [facility] Urine Ketones Negative Negative mg/dL [facility] Nitrite Urine Negative Negative [facility] Leukocyte Esterase Urine Negative Negative [facility] Urine (Urine, Random) 07/08/2025 1:33 PM EST 07/08/2025 2:08 PM EST Narrative [facility] - 07/08/2025 2:14 PM EST [id number], Clean Catch us Venancio Mcconnell MD LAB URINE ORDERABLES Final Result Performing Organization Address City/[facility] Co de Phone Number [facility] [address] [place] [phone] * Iron And Total Iron Binding Capacity (07/08/2025 1:27 PM EST) Iron 99 45 - 160 mcg/dL [facility] Total Iron Binding Capacity 322 228 - 428 mcg/dL [facility] Percent Iron Saturation 31 15 - 50 % [facility] Unsaturated Iron Binding 223 ug/dL [facility] Blood Venous blood specimen / Unknown 07/08/2025 1:27 PM EST 07/08/2025 2:06 PM EST us Venancio Mcconnell MD LAB BLOOD ORDERABLES Final Result [facility] [address] [place] [phone] * Prothrombin Time-INR (07/08/2025 1:27 PM EST) Pathologist [facility] Prothrombin Time 12.7 11.2 - 13.5 SEC [facility] INTERNATIONAL NORM RATIO 1.0 0.9 - 1.1 [facility] Comment:INTERNATIONAL NORMAL IZED RATIO (INR) REFERENCE RANGES Reference RangeFor patients not on anticoagulant therapy: 0.9 - 1.1INR ranges for oral anticoagulanttherapy:For prevention and treatment of venous thrombosis and pulmonary embolism: 2.0 - 3.0For acute myocardial infarction with aspirin therapy: 2.0 - 3.0For acute myocardial infarction without aspirin therapy: 3.0 - 4.0For patients with mechanical prosthetic heart valves: 2.5 - 3.5 Blood Venous blood specimen / Unknown 07/08/2025 1:27 PM EST 07/08/2025 2:06 PM EST us Venancio Mcconnell MD LAB BLOOD ORDERABLES Final Result Performing Organization Address [facility] Co de Phone Number [facility] [address] [place] [phone] * C-reactive Protein (07/08/2025 1:27 PM EST) [facility] C Reactive Protein <0.10 < or = 0.50 mg/dL [facility] Blood Venous blood specimen / Unknown 07/08/2025 1:27 PM EST 07/08/2025 2:06 PM EST Venancio Mcconnell MD LAB BLOOD ORDERABLES Final Result Performing Organization Address [facility] Co de Phone Number [facility] [address] [place] [phone] * Ferritin (07/08/2025 1:27 PM EST) [facility] Ferritin 125 20 - 250 ng/mL [facility] Blood Venous blood specimen / Unknown 07/08/2025 1:27 PM EST 07/08/2025 2:06 PM EST us Venancio Mcconnell MD LAB BLOOD ORDERABLES Final Result [facility] [address] [place] [phone] from Last 3 Months Insurance [facility] PPO Care Teams Laborer Starch Factory Relationship Specialty Start Date End Date Tacos Carter MD [address] [place] [phone] PCP - General Internal Medicine 12/15/24
--- OUTSIDE RECORDS SUMMARY | 2025-07-08 18:53 | XMS_ITS | Encounter Summary ---
Author Organization [employer] Address [address] [facility] 7t [place] [address] Care Team Providers Care Television Technician Name Role Phone Tacos Carter MD Primary Care Prov ider Encounter Details Date Type Department Care Team ([facility] st Contact Info) Description 05/03/2025 Telephone [facility] MEDICINE [address] [place] [phone] Tacos Carter MD [address] [place] [address] Social History Tobacco Use Types Packs/Day Years [...] documented as of this encounter Care Teams Television Technician Relationship Specialty Start Date End Date Tacos Carter MD [address] [place] [phone] PCP - General Internal Medicine 12/15/24 documented as of this encounter
[2025-07-09 08:28] LABS: HBS Num1 195.04 mIU/mL (0-7.99); HIV Num 1 0.05 S/CO (0.00-0.99); ~HepC Num1 0.10 S/CO (0.00-0.79); ~Hepatitis B Surface Antibody REACTIVE (Nonreactive); ~Hepatitis C Antibody Nonreactive (Nonreactive)
[2025-07-09 08:31] LABS: HBS Num1 186.44 mIU/mL (0-7.99); HBc Num1 0.12 S/CO (0.00-0.79); HBsAGNum1 0.39 S/CO (0.00-0.99); Hepatitis A Antibody IgM 0.18 Index (0-0.79); Hepatitis B Surface Antigen Negative (Negative); ~HepC Num1 0.11 S/CO (0.00-0.79); ~Hepatitis A Antibody IgM Nonreactive (Nonreactive); ~Hepatitis B Surface Antibody REACTIVE (Nonreactive); ~Hepatitis C Antibody Nonreactive (Nonreactive)
== END 2025-07-08 13:25 | disposition home or self-care (01) ==
LOC: HO.CHCLDS 13:24
PROVIDERS: Visit Provider Internal Medicine
DX: Z01.84 Encounter for antibody response examination (principal); Z11.4 Encounter for screening for human immunodeficiency virus [HIV]; Z20.2 Contact with and (suspected) exposure to infections with a predominantly sexual mode of transmission; R74.01 Elevation of levels of liver transaminase levels; R10.32 Left lower quadrant pain
CPT/HCPCS: 36415; 81003; 82728; 82784; 83540; 85610; 86140; 86592; 86704; 86706; 86709; 86803; 87340; 87389